=== PATIENT | male | born 1965 | race Hispanic/Latino ===

== ENCOUNTER 2018-01-01 06:42 | Day surgery (SDC) | payer MEDICAID ==
[2018-01-01] MEDS ORDERED: WATER FOR IRRIG STERILE IR ONE (07:23)
[2018-01-01] MEDS ORDERED: WATER FOR IRRIG STERILE ONE (07:23)
--- NOTE | 2018-01-01 07:26 | Anesthesia Consultation ---
Anesthesia Consult and Med Hx - Airway Anesthetic Teeth Evaluation: Poor ROM Head & Neck: Adequate Mental/Hyoid Distance: Adequate Mallampati Class: Class III Intubation Access Assessment: Probably Good - Pre-Operative Health Status ASA Pre-Surgery Classification: ASA2 Proposed Anesthetic Plan: General - Pulmonary Hx Smoking: Yes (1 PPD) - Additional Comments Anesthesia Medical History Comments: NAC
--- NOTE | 2018-01-01 07:27 | Anesthesia Day of Surgery ---
Anesthesia Day of Surgery - Day of Surgery Patient Examined: Yes Patient H&P Reviewed: Yes Patient is NPO: Yes
[2018-01-01] MEDS ORDERED: DIPRIVAN 10 MG/ML IV ONE ×2 (07:48)
[2018-01-01] MEDS ORDERED: NACL 0.9% 1000 ML 1,000 ML IV SCH (08:00)
[2018-01-01 08:37] VITALS: BP 119/63
--- NOTE | 2018-01-10 10:01 | Procedure Note ---
Date of procedure: 01/01/18 Pre-op diagnosis: screening colonoscopy Post-op diagnosis: same Procedure: Colonoscopy to cecum Description of procedure: Patient was placed in a left lateral decubitus position. He was then sedated intravenously by anesthesia. The colonoscope was inserted into the patient's rectum and was advanced retrograde while directly visualizing his colonic lumen. The prep was adequate. Once the cecum was identified, the scope was slowly withdrawn with careful circumferential visualization of the colonic mucosa. A retroflexed view of the distal rectum was performed. No polyps, tumors, AVMs, mucosal ulcerations or diverticula were noted. Insufflated air was aspirated from his rectum and scope withdrawn. Patient tolerated the procedure well. He was recovered in the GI suite. Anesthesia: MAC Surgeon: LILIA MENON Estimated blood loss: none Pathology: none Condition: stable Disposition: same day
== END 2018-01-01 06:43 | disposition home or self-care (01) ==
LOC: GIO 06:42
PROVIDERS: ATTEND Surgery
DX: Z12.11 Encounter for screening for malignant neoplasm of colon (principal); I10 Essential (primary) hypertension; F17.210 Nicotine dependence, cigarettes, uncomplicated; F41.9 Anxiety disorder, unspecified
CPT/HCPCS: 45378; J2704; J7030

== ENCOUNTER 2018-01-17 12:01 | Day surgery (SDC) | payer MEDICAID ==
--- NOTE | 2018-01-17 12:40 | History and Physical Report ---
History of Present Illness Date of examination: 01/17/18 Chief complaint: Abdominal hernia present for "several months" History of present illness: 52 yo male with a several month h/o a bulging, tender mass in his upper abdomen. He is s/p a Charito's procedure for perforated diverticulitis, Charito reversal and robotic repair of an incisional hernia. He denies melena , hematochezia or diarrhea but does c/o constipation. He is 2 weeks s/p a screening colonoscopy which was remarkable only for diverticulosis. His tenderness is located at the mass and this is not affected by eating or being NPO. Past History Past Medical History: hypertension, other (anxiety/depression, insomnia) Past Surgical History: Other (Bilateral shoulder surgery, back surgery) Social history: smoking (Smokes 1/2 ppd. He denies Etoh use.), other (NKDA) Medications and Allergies Allergies Allergy/AdvReac Type Severity Reaction Status Date / Time No Known Allergies Allergy Verified 01/16/18 12:18 Home Medications Medication Instructions Recorded Confirmed Last Taken Type Flomax 1 tab PO DAILY 01/01/18 01/16/18 01/01/18 History Gabapentin 1 tab PO BID 01/01/18 01/16/18 01/01/18 History Lexapro 1 tab PO DAILY 01/01/18 01/16/18 01/01/18 History Percocet 7.5/325 mg 1 tab PO DAILY 01/01/18 01/16/18 01/01/18 History traZODone 1 tab PO DAILY 01/01/18 01/16/18 01/01/18 History Review of Systems All systems: negative (none.) Exam - General physical appearance Positive: well developed, well nourished, no distress - Eyes Positive: PERRL, normal occular movement - ENT Positive: normal pinna, normal nares, normal mucosa, no hearing loss, no congestion - Neck Positive: no masses, no bruits, trachea midline, no venous distension - Respiratory Positive: normal expansion, normal respiratory effort, clear to auscultation - Cardiovascular Rhythm: regular Heart Sounds: Present: S1 & S2. Absent: rub, click - Extremities Extremities: no ischemia, pulses symmetrical, No edema - Abdomen Abdomen: Present: soft, bowel sounds normal, other (There is a moderate sized, incarcerated hernia to the right of his epigastric scar. ) - Integumentary no rash, no growths, no abnormal pigmentation - Neurologic Neurologic: alert and oriented to time, place and person, motor strength and sensation are grossly intact - Musculoskeletal normal gait, normal posture - Psychiatric Psychiatric: appropriate mood/affect, intact judgment & insight Results - Imaging Additional studies: CBC and CMP collected on 11/23/17 were remarkable only for a random BS of 104. Assessment and Plan - Patient Problems (1) Recurrent incisional hernia with incarceration Current Visit: Yes Status: Acute Plan to address problem: 1) Open repair with mesh 2) Prophylactic Ancef, IPC and SQ Heparin (2) Hypertension Current Visit: Yes Status: Acute (3) Anxiety Current Visit: Yes Status: Acute (4) Depression Current Visit: Yes Status: Acute (5) Tobacco abuse Current Visit: Yes Status: Acute
[2018-01-17] MEDS ORDERED: ZOFRAN IV PRN (12:47)
[2018-01-17] MEDS ORDERED: ceFAZolin 2 GM in NACL 0.9% 100 ML IV ONE (12:50)
--- NOTE | 2018-01-17 12:57 | Anesthesia Consultation ---
Anesthesia Consult and Med Hx Date of service: 01/17/18 - Airway Anesthetic Teeth Evaluation: Good ROM Head & Neck: Adequate Mental/Hyoid Distance: Adequate Mallampati Class: Class III Intubation Access Assessment: Probably Good - Pulmonary Exam CTA: Yes - Cardiac Exam Cardiac Exam: RRR - Pre-Operative Health Status ASA Pre-Surgery Classification: ASA3 Proposed Anesthetic Plan: General - Pulmonary Hx Smoking: Yes (1 PPD SINCE 1982) - Cardiovascular System Hx Hypertension: Yes (09/2017) Hx Heart Attack/AMI: No - Central Nervous System Hx Back Pain: Yes Hx Psychiatric Problems: Yes - Gastrointestinal Hx Gastroesophageal Reflux Disease: No - Endocrine Hx Renal Disease: No Hx Liver Disease: No Hx Thyroid Disease: No - Other Systems Hx Alcohol Use: No Hx Substance Use: Yes (MARIJUANA) Hx Cancer: No Hx Obesity: No
[2018-01-17] MEDS ORDERED: HEPARIN SUB-Q NR (13:00)
[2018-01-17] MEDS ORDERED: ANCEF/STERILE WATER 2 GM/20 ML IV NR (13:00)
[2018-01-17] MEDS ORDERED: NEURONTIN PO NR (13:00)
[2018-01-17] MEDS ORDERED: PEPCID IV NR (13:00)
[2018-01-17] MEDS ORDERED: TRANSDERM-SCOP TD NR (13:00)
--- NOTE | 2018-01-17 13:00 | Anesthesia Day of Surgery ---
Anesthesia Day of Surgery - Day of Surgery Patient Examined: Yes Patient H&P Reviewed: Yes Patient is NPO: Yes
[2018-01-17] MEDS ORDERED: DILAUDID IV NR (13:30)
[2018-01-17] MEDS ORDERED: NACL 0.9% 1000 ML 1,000 ML IV SCH (13:30)
[2018-01-17] MEDS ORDERED: VERSED IV NR (13:30)
[2018-01-17] MEDS ORDERED: ZEMURON IV ONE (13:50)
[2018-01-17] MEDS ORDERED: SUBLIMAZE ONE (13:50)
[2018-01-17] MEDS ORDERED: QUELICIN ONE (13:50)
[2018-01-17] MEDS ORDERED: DECADRON ONE (13:50)
[2018-01-17] MEDS ORDERED: ZOFRAN ONE (13:50)
[2018-01-17] MEDS ORDERED: DIPRIVAN 10 MG/ML IV ONE (13:51)
[2018-01-17] MEDS ORDERED: MARCAINE-EPI 0.5%-1:200,000 INFILTRATI ONE ×2 (13:52)
[2018-01-17] MEDS ORDERED: NACL 0.9% IR ONE (13:52)
[2018-01-17] MEDS ORDERED: ROBINUL ONE (15:36)
[2018-01-17] MEDS ORDERED: TORADOL ONE (15:36)
[2018-01-17] MEDS ORDERED: NEOSTIGMINE ONE (15:36)
--- NOTE | 2018-01-17 15:44 | Post Operative Note ---
Pre-op diagnosis: Epigastric hernia Post-op diagnosis: same Procedure: Open repair Anesthesia: JULIAN Surgeon: LILIA MENON Estimated blood loss: minimal Pathology: none Condition: stable Disposition: PACU
[2018-01-17] MEDS: DILAUDID IV PRN ×3 (16:32→16:54)
[2018-01-17 18:05] VITALS: BP 145/80
--- NOTE | 2018-01-23 09:24 | Operative Report ---
Operative Report Operative Report: Date of operation: 01/17/2018 Preoperative diagnosis: Incarcerated, recurrent epigastric hernia Postoperative diagnosis: Same Operation: Open repair of above Surgeon: Zoltan Sanchez M.D. Anesthesia: GETA EBL: Minimal There were no complications, drains, cultures or specimens. Description of procedure: Patient was placed supine on the operating room table. After adequate general anesthesia was obtained, his abdomen was prepped and draped. An incision was then made over the midline of his epigastrium. His hernia was immediately identified and was felt to be secondary to laxity of his previous mesh placement. The mesh however was secure along the periphery of the hernia. The herniating portion of the mesh was excised. The residual fascial defect was closed with multiple interrupted sutures of #1 Ethibond. Wound was irrigated with warm saline. Skin was approximated with a running subcuticular suture of 4-0 Monocryl. A sterile dressing was applied. Patient tolerated the procedure well. He was extubated in the operating room and was taken to the PACU in stable condition.
== END 2018-01-17 12:02 | disposition home or self-care (01) ==
LOC: OR 12:01
PROVIDERS: ATTEND Surgery
DX: K43.0 Incisional hernia with obstruction, without gangrene (principal); I10 Essential (primary) hypertension; F17.210 Nicotine dependence, cigarettes, uncomplicated; F41.9 Anxiety disorder, unspecified; F32.9 Major depressive disorder, single episode, unspecified; Z98.890 Other specified postprocedural states
CPT/HCPCS: 49566; J0330; J0690; J1100; J1170; J1644; J1885; J2250; J2405; J2704; J2710; J3010; J7030